=== PATIENT | male | born 1960 | race Asian ===

== ENCOUNTER → 2016-07-29 | Outpatient (CLI) | payer OTHER ==
[2016-07-29 08:25] LABS: ASPARTATE AMINO TRANSFERASE 16 U/L (15-37); BLOOD UREA NITROGEN 12 mg/dL (7-18)
== END | disposition home or self-care (01) ==
LOC: LAB 07:55
PROVIDERS: ATTEND Family Medicine
DX: E11.69 Type 2 diabetes mellitus with other specified complication (principal)
CPT/HCPCS: 36415; 80053; 80061; 82043; 83036

== ENCOUNTER → 2016-08-10 | Outpatient (CLI) | payer OTHER | END | disposition home or self-care (01) | LOC: CFH 12:48 | PROVIDERS: ATTEND Family Medicine | DX: M50.30 Other cervical disc degeneration, unspecified cervical region (principal); M50.21 Other cervical disc displacement, high cervical region; M48.02 Spinal stenosis, cervical region; M25.78 Osteophyte, vertebrae | CPT/HCPCS: 72141; 72148 ==

== ENCOUNTER → 2016-12-01 | Outpatient (CLI) | payer OTHER | END | disposition home or self-care (01) | LOC: CFH 07:33 | PROVIDERS: ATTEND Family Medicine | DX: M25.462 Effusion, left knee (principal) ==